=== PATIENT | male | born 1955 | race Hispanic/Latino ===

== ENCOUNTER 2017-05-28 09:00 | Outpatient (CLI) | payer OTHER ==
[2017-05-28] MEDS ORDERED: PROVENTIL IH ONE (10:17)
== END 2017-05-28 09:01 | disposition home or self-care (01) ==
LOC: PF 09:00
PROVIDERS: ATTEND Internal Medicine
DX: J44.9 Chronic obstructive pulmonary disease, unspecified (principal); J40 Bronchitis, not specified as acute or chronic; G56.03 Carpal tunnel syndrome, bilateral upper limbs; M17.0 Bilateral primary osteoarthritis of knee; M19.011 Primary osteoarthritis, right shoulder; I10 Essential (primary) hypertension; Z87.891 Personal history of nicotine dependence
CPT/HCPCS: 94060; 94640